=== PATIENT | female | born 1975 | race Caucasian/White ===

== ENCOUNTER 2017-07-25 06:26 | Day surgery (SDC) | payer BC ==
[2017-07-20 13:43] LABS: Urine Appearance CLEAR; Urine Bilirubin NEGATIVE (NEG); Urine Blood NEGATIVE (NEG); Urine Color YELLOW; Urine Glucose NEGATIVE (NEG); Urine Microscopic Reflex NO UMIC; Urine Protein NEGATIVE (NEG); Urine Urobilinogen 0.2 mg/dL (0.2-1.0)
[2017-07-20 13:52] LABS: Absolute Lymphocytes (CBC) 1.8 K/uL (0.7-4.9); Absolute Monocytes 0.6 K/uL (0.1-1.3); Absolute Neutrophil 7.8 K/uL (1.8-8.0); Basophils % 0.4 % (0-1.3); Eosinophils % 3.2 % (0-4.4); Hematocrit 44.6 % (36.0-45.0); Lymphocytes % 17.2 % (15.3-44.8); MCH 31.4 pg (27.0-35.0); MCV 92.9 fL (80-100); MPV 10.5 fL (7.6-11.3); Monocytes % 5.9 % (3.3-12.3)
[2017-07-20 14:10] LABS: Potassium 3.8 mEq/L (3.6-5.0)
[2017-07-25] MEDS ORDERED: Ringers Lactate 1,000 ML IV ONE ×2 (06:43→08:58)
[2017-07-25] MEDS ORDERED: CEFAZOLIN/SWI 1gm 0 GM/0 ML SYR ONE (06:44)
[2017-07-25] MEDS ORDERED: NA CHLORIDE 0.9% 0 ML ONE (06:57)
[2017-07-25] MEDS ORDERED: LIDOCAINE 1% W/EPI 1:100,000 MDV 50 ML VIAL ONE (06:57)
[2017-07-25] MEDS ORDERED: PROPOFOL 200 MG/20 ML VIAL IV ONE (07:03)
[2017-07-25] MEDS ORDERED: LIDOCAINE 2% MPF 5 ML VIAL ONE (07:03)
[2017-07-25] MEDS ORDERED: MIDAZOLAM HCL 2 MG/2 ML INJ ONE (07:03)
[2017-07-25] MEDS ORDERED: ONDANSETRON 4 MG/2 ML VIAL ONE (07:03)
[2017-07-25] MEDS ORDERED: FENTANYL CITR 100 MCG/2 ML ONE ×2 (07:04→08:46)
[2017-07-25] MEDS: CEFAZOLIN/SWI 2gm 2 GM/20 ML SYR IV SCH ×3 (07:26→07:50)
[2017-07-25] MEDS ORDERED: NA CHLORIDE 0.9% 50 ML ONE (07:50)
[2017-07-25] MEDS ORDERED: VASOPRESSIN 20 UNIT/ML VIAL ONE (07:50)
[2017-07-25] MEDS ORDERED: KETOROLAC 30 MG/ML INJ ONE (08:56)
[2017-07-25] MEDS ORDERED: ALBUTEROL 2.5 MG/3 ML NEB SOL ONE (09:29)
[2017-07-25] MEDS ORDERED: HYDROCODONE/APAP 5/325 MG TAB ONE (12:19)
[2017-07-25 12:49] LABS: Potassium 3.9 mEq/L (3.6-5.0)
--- NOTE | 2017-07-25 20:57 | OP ---
Date of Procedure: 07/25/2017 Surgeon: Ethel Mcnair MD Preoperative Diagnoses: Heavy menorrhagia and fibroids. She also has dysmenorrhea. Postoperative Diagnoses: Heavy menorrhagia and fibroids. She also has dysmenorrhea. Procedures Performed: 1.Operative hysteroscopy, myomectomy using the Dolphin. 2.Hysteroscopy, endometrial ablation with [place] ThermAblator. Specimens: Myoma. Complications: No complications. Drains: No drains. Condition: Stable. Findings: There was a posterior leiomyoma about 4 cm in width appeared to be about 1.5 cm into the u terine cavity on the posterior wall. Rest of the cavity appeared to be unremarkable. The cavity was anteflexed. The myoma was resected almost completely to the base till the myometrium was flushed wi th the cavity. No evidence of any left over myoma. Ablation was done. Cerclage stitch had to be placed to hold the fluid in around the HTA sheath that the entire ablation cycle was conducted without any interruption and there was an excellent ablation effect in the entire endometrium. Indications For Procedure: The patient is a 42-year-old with heavy bleeding and anemia. She also porter s dysmenorrhea. A transvaginal ultrasound was done and she was found to have fibroids. The patient had an IUD in the past, which was removed and sampling was performed which was negative for EIN or EA C. Given the fact that her IUD had failed while it was still in after having worked for some time, t his suspicion that there could be a leiomyoma based on the appearance on the transvaginal ultrasound, as well so went on to consent the patient with a hysteroscope, checked for leiomyomata present perfo rm a myomectomy and then perform an endometrial ablation for the bleeding. Procedure In Detail: After we discussed all this, the patient was consented, she was brought to the OR, 2 g of Ancef were given. She was taken back to OR placed in supine fashion on the operating tabl e general anesthesia was given, she was placed in a dorsal lithotomy position and pelvic exam was per formed. Speculum was placed. The prep x3 with Betadine was done on the vulva, vagina, and cervix. Everything was draped. A speculum was placed to expose the cervix. Anterior lip of the cervix held with 2 Allis clamps. Diagnostic slimline hysteroscope with a 30-degree lens and normal saline were u sed for initial hysteroscopy. Once I looked inside the uterine cavity, the posterior myoma as descri bed was found. The scope was pulled out and the cervix was dilated with cervical dilators to 20-Fren ch. Once this was done, the myomectomy apparatus was opened up. The operating channel hooked to a m onopolar current loop. Then, a diagnostic sheath was placed first and using the 30 degree lens, dire ct hysteroscopy was performed using 1.5% glycine used through the Dolphin. The mean arterial pressur e was 80 mmHg. So, the set pressure was at 80. After priming the Doppler machine, hysteroscopy was performed. Uterine cavity was entered without any problems. The diagnostic obturator was removed an d the operating channel was placed through this. With cutting current at 80 davidson and coagulation cu rrent at 60 davidson, myomectomy was performed in multiple slices taking out the myoma in a serial fashi on all the way to the base as I excised it more of it showed up into the uterine cavity and so this w as all excised so the myometrium was visualized. The specimens were removed of the myoma. Then, the uterine cavity was well visualized and cauterized with a monopolar coagulation current for hemostasi s. Then, after the entire cavity was cleaned up, then the cerclage stitch was placed around the cerv ix with a 0 Vicryl. Then, the HTA sheath that was primed already was inserted through the cervical c anal into the uterine cavity. Without tying the cerclage stitch there was leakage of fluid, so the c erclage stitch was placed around and tied down once the tip of the scope was placed in optimal positi on. At this point, there was no leak on the cavity integrity test. Once it passed this, the ablatio n cycle was started and there was no interruption into the entire 10 minutes ablation cycle and 1.5 m inute cooling cycle. After the cooling cycle was done, further diagnostic hysteroscopy was done to w rodolfo out the cavity as well as take a look at the ablation effect. There was an optimal global ablati on effect in the myometrium and the endometrial cavity. The scope was then pulled out gently. Then, the stitch was removed by cutting it out. Instrument, needle, and sponge counts were done. A Ray-T ec that was tucked in the posterior fornix was also removed. The patient tolerated the procedure wel l. She was given 30 mg of Toradol IV and then recovered from anesthesia and taken to PACU in stable condition. Instrument, needle, and sponge counts were correct. RADAMES/CULLEN Voice ID: [id number] Report ID: [id number]
== END 2017-07-25 13:20 | disposition home or self-care (01) ==
LOC: OR 06:26
PROVIDERS: ATTEND Obstetrics & Gynecology
PROC: 0U5B8ZZ Destruction of Endometrium, Via Natural or Artificial Opening Endoscopic (ICD-10-PCS; principal; 2017-07-25 07:30)
PROC: 0UB98ZZ Excision of Uterus, Via Natural or Artificial Opening Endoscopic (ICD-10-PCS; 2017-07-25 07:30)
DX: N92.0 Excessive and frequent menstruation with regular cycle (principal); N94.6 Dysmenorrhea, unspecified; D25.9 Leiomyoma of uterus, unspecified; E03.9 Hypothyroidism, unspecified; E78.5 Hyperlipidemia, unspecified; J45.909 Unspecified asthma, uncomplicated; K21.9 Gastro-esophageal reflux disease without esophagitis; E66.01 Morbid (severe) obesity due to excess calories; F32.9 Major depressive disorder, single episode, unspecified; F17.210 Nicotine dependence, cigarettes, uncomplicated; Z80.42 Family history of malignant neoplasm of prostate; Z83.3 Family history of diabetes mellitus; Z82.49 Family history of ischemic heart disease and other diseases of the circulatory system; Z80.3 Family history of malignant neoplasm of breast; Z80.0 Family history of malignant neoplasm of digestive organs; Z82.3 Family history of stroke
CPT/HCPCS: 36415; 80048; 81003; 81025; 85025; 88305; J0690; J2250; J2405; J3010; J7030